=== PATIENT | female | born 1985 | race Caucasian/White ===

== ENCOUNTER 2018-10-24 10:05 | Emergency (ER) | payer OTHER ==
[~2018-10-24] VITALS: Ht 170.2 cm; Wt 62.6 kg
[2018-10-24 10:05] VITALS: BP 145/99
--- NOTE | 2018-10-24 11:18 | NUR ---
Patient discharged to home in stable condition. Written and verbal after care instructions given. Patient verbalizes understanding of instruction.
== END 2018-10-24 11:20 | disposition home or self-care (01) ==
LOC: ER 10:06
DX: J20.9 Acute bronchitis, unspecified (principal); Z85.41 Personal history of malignant neoplasm of cervix uteri; Z98.890 Other specified postprocedural states; Z88.0 Allergy status to penicillin